=== PATIENT | male | born 1950 | race Caucasian/White ===

== ENCOUNTER 2018-09-26 09:22 | Day surgery (SDC) | payer OTHER ==
[~2018-09-26] VITALS: Ht 180.3 cm; Wt 108.9 kg
[2018-09-26 10:01] VITALS: BP 123/71
[2018-09-26 12:06] VITALS: BP 106/58
== END 2018-09-26 12:35 | disposition home or self-care (01) ==
LOC: GI 09:22
PROVIDERS: Surgery
PROC: 0DJD8ZZ Inspection of Lower Intestinal Tract, Via Natural or Artificial Opening Endoscopic (ICD-10-PCS; principal; 2018-09-26 11:00)
DX: Z12.11 Encounter for screening for malignant neoplasm of colon (principal); K64.8 Other hemorrhoids; Z68.34 Body mass index [BMI] 34.0-34.9, adult; Z86.010 Personal history of colon polyps
CPT/HCPCS: 45378; J1200; J1610; J2250; J2310; J3010; J3490